=== PATIENT | female | born 1975 | race Caucasian/White ===

== ENCOUNTER 2016-07-28 14:15 | Emergency (ER) | payer OTHER ==
[~2016-07-28] VITALS: Ht 175.3 cm; Wt 100.0 kg
[2016-07-28 14:22] VITALS: BP 133/84; PULSE 85; RESP 18; O2SAT 95
--- NOTE | 2016-07-28 14:57 | ED.REPORT ---
HPI-Eye Problem Date of Service Jul 28, 2016 ED Provider: Dr. Rosario 40 year old female with a history of diabetes who presents to the ER due to vision changes in the R eye since yesterday. Pt states that this started as a "mushroom cloud" and has been migrating around her visual field blocking her vision. Pt states that this appears red/brown. L eye is unaffected and normal vision. Pt denies any pain. Denies any trauma. Pt is not on anticoagulants and her only medication is insulin. She does not have an ophthalmologists. Nursing Notes Stated Complaint: EYE PAIN Chief Complaint: Eye Nursing Notes Reviewed: Yes Allergies: Uncoded Allergies: NOVLIN (Allergy, Severe, 07/28/16) General Time Seen by MD: 14:56 Chief Complaint Right eye affected, Decreased vision Hx Obtained From: Patient Arrived By: Walk-in Onset Occurred: Yesterday Symptom Duration: Since onset Severity: Current: No pain currently Pertinent Negative: Relieved by nothing Past Medical History Past Medical History Rheumatoid arthritis- in remission Reports: Diabetes mellitus Past Surgical History Hernia Carpal Tunnel Smoking History Never Smoker Social History Drug Use: THC Review of Systems Basic Review of Systems Respiratory: No shortness of breath Cardiovascular: No chest pain GI: No abdominal pain, No nausea Psychiatric: Normal thought content Constitutional: Denies: Fever Eyes: Reports: Visual loss right, Denies: Eye pain bilateral, Visual loss left Neurologic: Denies: Dizziness, Headache Complete sys rev & neg: except as marked. Physical Exam Physical Exam Notes: Visual Acuity 20/20 L eye, 20/60 R eye Initial Vital Signs Vital Signs (First) Date Time Temp Pulse Resp B/P Pulse Ox O2 Delivery O2 Flow Rate FiO2 07/28/16 14:22 36.5 85 18 133/84 95 Room Air Initial VS: Reviewed General / Const: Well-developed, Well-nourished Neck: Full range of motion Head / Eyes: Atraumatic, Normocephalic, PERRL, EOMI, No scleral icterus, Conjunctiva NL, Eyelids NL Blood around retina, inferior outer quadrant. No hyphema or hypopyon. No facial swelling. Re-Eval/Medical Decision Med Decision/Clinical Course Physical exam reveals a probable retinal vitreal hemorrhage, patient will for discharge and will follow up with ophthalmology at 8 AM tomorrow return and follow-up precautions given. Re-Evaluation/Progress : Time of Eval: 15:41 Re-Evaluation/Progress Note: Discussed plan for discharge and follow up. All questions addressed. Consultation : Referral / Consult Name: Charles Lott MD Consulted With: [employer] Operator Call Returned at: 15:47 Pit Steward: Will see in office Counseled Regarding: Diagnosis, Need for follow-up, When/why to return to ED Discharge & Departure Primary Impression: Retinal hemorrhage Laterality: right Qualified Code: H35.61 - Retinal hemorrhage, right eye Disposition: Home Discharge Condition All VS Reviewed: Yes Condition: Stable Additional Instructions: We believe that you have a retinal hemorrhage (bleeding of the retina). Avoid aspirin/blood thinners and anything that can raise your blood pressure (heavy lifting, squatting, sneezing) Follow up with ophthalmology tomorrow morning at 8 AM. We spoke with Dr. Lott [facility] [address] [place] [id number] Referrals: Charles Lott MD Scribe Attestation Portions of this note were transcribed by Tiffanie Miller. I, (Dr. Marcelino Rosario ) personally performed the history, physical exam and medical decision-making; I reviewed and confirmed the accuracy of the information in the transcribed note. Signed by: Tiffanie Miller. Madai, 07/28/2016, [id number] copies to: Charles Lott MD, Timothy S DO Jul 28, 2016 14:56 Tiffanie Miller Jul 28, 2016 15:11
== END 2016-07-28 16:10 | disposition home or self-care (01) ==
LOC: EDBD 14:15 → SED 14:15
DX: H35.61 Retinal hemorrhage, right eye (principal); E11.9 Type 2 diabetes mellitus without complications